=== PATIENT | male | born 1960 | race Hispanic/Latino ===

== ENCOUNTER 2017-12-29 11:06 | Emergency (ER) | payer SELFPAY ==
[~2017-12-29] VITALS: Ht 182.9 cm; Wt 99.8 kg
[2017-12-29] MEDS ORDERED: SODIUM CHLORIDE 0.9% 1000ML 1,000 ML IV ONE (11:45)
--- NOTE | 2017-12-29 12:22 | Diagnostic Imaging Report ---
PROCEDURE:ABDOMEN ACUTE SERIES W/PA CXR COMPARISON:None. INDICATIONS:ABDOMEN DISTENTION FINDINGS: CHEST: The lungs are clear. No pleural effusion or pneumothorax. BOWEL PATTERN: Multiple mildly dilated small bowel loops in the left abdomen with a small air fluid levels. There is gas within the colon and rectum. SOFT TISSUES: No acute abnormality. BONES: Degenerative changes of the facet joints at L4-L5 and L5-S1. CONCLUSION: 1. Multiple mildly dilated small bowel loops may reflect small bowel ileus versus less likely partial obstruction. 2. No acute thoracic abnormality. Hussein Whittington M.D. Dictated by: Hussein Whittington M.D. on 12/29/2017 at 12:22 Electronically approved by: Hussein Whittington M.D. on 12/29/2017 at 12:22
[2017-12-29 13:10] LABS: BASOPHILS # (AUTO) 0.1 (0.0-0.1); BASOPHILS % 0.9 % (0.0-1.0); EOSINOPHILS # (AUTO) 0.3 (0.0-0.4); EOSINOPHILS % 2.9 % (0.0-6.0); HEMATOCRIT 32.1 % (38.2-49.6); HEMOGLOBIN 11.3 g/dL (14.0-18.0); LYMPHOCYTES # (AUTO) 2.2 (1.0-3.2); MEAN CORPUSCULAR HEMOGLOBIN 33.7 pg (28-32); MEAN CORPUSCULAR HGB CONC 35.2 g/dL (31-35); MEAN CORPUSCULAR VOLUME 95.8 fL (81-99); MONOCYTES # (AUTO) 0.5 (0.2-0.8); MONOCYTES % 5.8 % (4.4-11.3); NEUTROPHILS % 65.7 % (38.7-80.0); PLATELET COUNT 330 x10e3/uL (140-360); RED BLOOD COUNT 3.35 x10e6/uL (4.3-5.7); RED CELL DISTRIBUTION WIDTH 12.7 % (11.7-14.4)
[2017-12-29 13:38] LABS: ALANINE AMINOTRANSFERASE 38 IU/L (0-55); ALBUMIN/GLOBULIN RATIO 1.1 (0.8-2.0); ALKALINE PHOSPHATASE 68 IU/L (40-150); ANION GAP 13.7 mmol/L (8-16); BLOOD UREA NITROGEN 6 mg/dL (7-26); BUN/CREATININE RATIO 7 (6-25); CALCIUM 9.7 mg/dL (8.4-10.2); CARBON DIOXIDE 23 mmol/L (22-29); CHLORIDE 105 mmol/L (98-107); CREATININE, SERUM 0.89 mg/dL (0.72-1.25); EST GLOMERULAR FILTRATION RATE > 60 ML/MIN (60-); GLUCOSE 137 mg/dL (74-118); MAGNESIUM 1.3 MG/DL (1.3-2.1); POTASSIUM 3.7 mmol/L (3.5-5.1); SODIUM 138 mmol/L (136-145)
[2017-12-29] MEDS ORDERED: DIATRIZOATE MEGL/DIATRIZOA SOD 30 ML BTL PO ONE (13:39)
[2017-12-29 13:57] LABS: THYROID STIMULATING HORMONE 1.474 uIU/mL (0.350-4.940)
--- NOTE | 2017-12-29 15:12 | Diagnostic Imaging Report ---
PROCEDURE:CT ABDOMEN AND PELVIS WITH CONTRAST COMPARISON:None. INDICATIONS:SMALL BOWEL OBSTRUCTION TECHNIQUE: Routine protocol Volumetric CT abdomen and pelvis after administration of 100 mL Isovue-370 intravenous contrast and 900 mL dilute positive enteric contrast. Multiplanar reformatted images. DLP: 988.51 FINDINGS: Clear lung bases. No pleural effusions. Normal heart size. Liver: Normal Gallbladder: Normal. No bile duct dilation. Pancreas: Normal Spleen: Normal Adrenal glands: Normal Kidneys: Nonspecific bilateral perinephric fat stranding. Otherwise, normal. Urinary bladder: Normal Prostate and seminal vesicles: Normal Bowel: Normal caliber. Redundant sigmoid colon. Normal contrast opacification through the transverse colon. Normal appendix. Peritoneum: Normal Vasculature: Normal caliber. Mild scattered non-flow limiting atherosclerosis. Lymph nodes: Normal Skeleton: Intact. Chronic T11 anterior column fracture. Mild multilevel degenerative disc disease. Soft tissues: Normal CONCLUSION: 1. No evidence of small bowel obstruction. 2. No acute abnormality. Dictated by: Grupo Potter M.D. on 12/29/2017 at 15:13 Electronically approved by: Grupo Potter M.D. on 12/29/2017 at 15:13
[2017-12-29] MEDS ORDERED: SODIUM CHLORIDE 0.9% 50ML 50 ML ONE (15:16)
[2017-12-29] MEDS ORDERED: IOPAMIDOL 370 MG/ML 200 ML INFUS..BTL INJ ONE (15:16)
== END 2017-12-29 16:09 | disposition home or self-care (01) ==
LOC: ER 11:06
DX: R10.33 Periumbilical pain (principal); K59.00 Constipation, unspecified
CPT/HCPCS: 36415; 74022; 74177; 80053; 83735; 84443; 85025; 99284; J7030; Q9967

== ENCOUNTER 2018-01-23 13:17 | Emergency (ER) | payer SELFPAY ==
[~2018-01-23] VITALS: Ht 188 cm; Wt 117.9 kg
--- OUTSIDE RECORDS SUMMARY | 2018-01-23 13:19 | XMS REPORT ---
Author Author [facility] Address Unknown Phone Unavailable Care Team Providers Care Sales Engagement Manager Name Role Phone KEVIN CONDON Unavailable Unavailable Problems This patient has no known problems. Allergies, Adverse Reactions, Alerts This patient has no known allergies or adverse reactions. Medications This patient has no known medications. Results Test Description Test Time Test Comments Text Results Atomic Results Result Comments CT ABDOMEN/PELVIS W [place] [address] Patient Name: EM PRIEST MR #: [id number] : 1960 Age/Sex: 57/M Req # : [id number] Adm Physician: Ordered by: KEVIN CONDON MD Report #: [id number] Location: ER Room/Bed: Procedure: [id number] CT/CT ABDOMEN/PELVIS W Exam Date: 12/29/17 Exam Time: 1445 REPORT STATUS: Signed PROCEDURE: CT ABDOMEN AND PELVIS WITH CONTRAST COMPARISON: None. INDICATIONS: SMALL BOWEL OBSTRUCTION TECHNIQUE: Routine protocol Volumetric CT abdomen and pelvis after administration of 100 mL Isovue-370 intravenous contrast and 900 mL dilute positive enteric contrast. Multiplanar reformatted images. DLP: 988.51 FINDINGS: Clear lung bases. No pleural effusions. Normal heart size. Liver: Normal Gallbladder: Normal. No bile duct dilation. Pancreas: Normal Spleen: Normal Adrenal glands: Normal Kidneys: Nonspecific bilateral perinephric fat stranding. Otherwise, normal. Urinary bladder: Normal Prostate and seminal vesicles: Normal Bowel: Normal caliber. Redundant sigmoid colon. Normal contrast opacification through the transverse colon. Normal appendix. Peritoneum: Normal Vasculature: Normal caliber. Mild scattered non-flow limiting atherosclerosis. Lymph nodes: Normal Skeleton: Intact. Chronic T11 anterior column fracture. Mild multilevel degenerative disc disease. Soft tissues: Normal CONCLUSION: 1. No evidence of small bowel obstruction. 2. No acute abnormality. Dictated by: Reagan Potter M.D. on at 15:13 Electronically approved by: Reagan Potter M.D. on 12/29/2017 at 15:13 Dictated By: REAGAN POTTER MD 12 Transcribed By: ELFEGO on 12/29/17 151 COPY TO: KEVIN CONDON MD ABDOMEN ACUTE SERIES W/PA CXR [place] [address] Patient Name: EM PRIEST MR #: [id number] : 1960 Age/Sex: 57/M Req #: [id number] Adm Physician: Ordered by: KEVIN CONDON MD Report #: [id number] Location: ER Room/Bed: Procedure: [id number] DX/ABDOMEN ACUTE SERIES W/PA CXR Exam Date: Exam Time: REPORT STATUS: Signed PROCEDURE: ABDOMEN ACUTE SERIES W/PA CXR COMPARISON: None. INDICATIONS: ABDOMEN DISTENTION FINDINGS: CHEST: The lungs are clear. No pleural effusion or pneumothorax. BOWEL PATTERN: Multiple mildly dilated small bowel loops in the left abdomen with a small air fluid levels. There is gas within the colon and rectum. SOFT TISSUES: No acute abnormality. BONES: Degenerative changes of the facet joints at L4-L5 and L5-S1. CONCLUSION: 1. Multiple mildly dilated small bowel loops may reflect small bowel ileus versus less likely partial obstruction. 2. No acute thoracic abnormality. Hussein Rueda M.D. Dictated by: Hussein Rueda M.D. on 12/29/2017 at 12:22 Electronically approved by : Hussein Rueda M.D. on 12/29/2017 at 12:22 Dictated By: BLAINE RUEDA MD, MD 1222 COPY TO: KEVIN CONDON MD
--- OUTSIDE RECORDS SUMMARY | 2018-01-23 13:19 | XMS REPORT | Continuity of Care Document ---
Author Author [facility] Organization [facility] Address [address] [place] [address] Phone Unavailable Care Team Providers Care Dredgemaster Name Role Phone NO, PCP PCP Unavailable Advance Directives Directive Response Recorded Date/Time Does the patient have an advance directive? No 12/29/17 11:59am If yes, is advance directive on file with [facility]? No 12/29/17 11:59am If not on file with [facility] will patient provide a copy? No 12/29/17 11:59am Do you have a Directive to Physician? No 12/29/17 11:59am Do you have a Medical Power of Visitor Information Assistant? No 12/29/17 11:59am Do you have an out of hospital Do Not Resuscitate Order? No 12/29/17 11:59am Do you have any special needs we should be aware of? No 12/29/17 11:59am Do you have a support person here with you today? No 12/29/17 11:59am Did patient receive Notice of Privacy Practices? Yes 12/29/17 11:59am Did patient receive patient rights and responsibilities? Yes 12/29/17 11:59am Problems No problem information available. Medications No medication information available. Social History Smoking Status Start Date Stop Date Never Smoker Hospital Discharge Instructions No hospital discharge instruction information available. Plan of Care Discharge Date 12/29/17 4:09pm Disposition HOME, SELF-CARE Condition at Discharge Stable Instructions/Education Provided Constipation - Adult Forms Provided Work/School Excuse Prescriptions See Medication Section Additional Instructions/Education Use Over the Cponter Magnesium Citrate once a week for constipation Functional Status No functional status information available. Allergies, Adverse Reactions, Alerts No known allergies. Immunizations No immunization information available. Vital Signs Acute Vital Signs Vital Response Date/Time Height 6 ft 0 in 12/29/2017 11:32am Weight 220 lb 12/29/2017 11:32am Body Mass Index 29.8 kg/m^2 12/29/2017 11:32am Results Laboratory Results Test Name Result Units Flags Reference Collection Date/Time Result Date/ Time Comments White Blood Count 9.12 x10e3/uL 4.8-10.8 12/29/2017 12:36pm 12/29/2017 1:11pm Red Blood Count 3.35 x10e6/uL L 4.3-5.7 12/29/2017 12:36pm 12/29/2017 1: 11pm Hemoglobin 11.3 g/dL L 14.0-18.0 12/29/2017 12:36pm 12/29/2017 1:11pm Hematocrit 32.1 % L 38.2-49.6 12/29/2017 12:36pm 12/29/2017 1:11pm Mean Corpuscular Volume 95.8 fL 81-99 12/29/2017 12:36pm 12/29/2017 1: 11pm Mean Corpuscular Hemoglobin 33.7 pg H 28-32 12/29/2017 12:36pm 2017 1:11pm Mean Corpuscular Hemoglobin Concent 35.2 g/dL H 31-35 12/29/2017 12:36pm 12/29/2017 1:11pm Red Cell Distribution Width 12.7 % 11.7-14.4 12/29/2017 12:36pm 2017 1:11pm Platelet Count 330 x10e3/uL 140-360 12/29/2017 12:36pm 12/29/2017 1: 11pm Neutrophils (%) (Auto) 65.7 % 38.7-80.0 12/29/2017 12:36pm 12/29/2017 1 :11pm Lymphocytes (%) (Auto) 24.0 % 18.0-39.1 12/29/2017 12:36pm 12/29/2017 1 :11pm Monocytes (%) (Auto) 5.8 % 4.4-11.3 12/29/2017 12:36pm 12/29/2017 1: 11pm Eosinophils (%) (Auto) 2.9 % 0.0-6.0 12/29/2017 12:36pm 12/29/2017 1: 11pm Basophils (%) (Auto) 0.9 % 0.0-1.0 12/29/2017 12:36pm 12/29/2017 1: 11pm IM GRANULOCYTES % 0.7 % 0.0-1.0 12/29/2017 12:36pm 12/29/2017 1:11pm Neutrophils # (Auto) 6.0 2.1-6.9 12/29/2017 12:36pm 12/29/2017 1: 11pm Lymphocytes # (Auto) 2.2 1.0-3.2 12/29/2017 12:36pm 12/29/2017 1: 11pm Monocytes # (Auto) 0.5 0.2-0.8 12/29/2017 12:36pm 12/29/2017 1:11pm Eosinophils # (Auto) 0.3 0.0-0.4 12/29/2017 12:36pm 12/29/2017 1: 11pm Basophils # (Auto) 0.1 0.0-0.1 12/29/2017 12:36pm 12/29/2017 1:11pm Absolute Immature Granulocyte (auto 0.06 x10e3/uL 0-0.1 12/29/2017 12: 36pm 12/29/2017 1:11pm Sodium Level 138 mmol/L 136-145 12/29/2017 12:36pm 12/29/2017 1:41pm Potassium Level 3.7 mmol/L 3.5-5.1 12/29/2017 12:36pm 12/29/2017 1: 41pm Chloride Level 105 mmol/L 98-107 12/29/2017 12:36pm 12/29/2017 1:41pm Carbon Dioxide Level 23 mmol/L 22-29 12/29/2017 12:36pm 12/29/2017 1: 41pm Anion Gap 13.7 mmol/L 8-16 12/29/2017 12:36pm 12/29/2017 1:41pm Blood Urea Nitrogen 6 mg/dL L 7-26 12/29/2017 12:36pm 12/29/2017 1:41pm Creatinine 0.89 mg/dL 0.72-1.25 12/29/2017 12:36pm 12/29/2017 1:41pm BUN/Creatinine Ratio 7 6-25 12/29/2017 12:36pm 12/29/2017 1:41pm Estimat Glomerular Filtration Rate > 60 ML/MIN 60- 12/29/2017 12:36pm 12/29/2017 1:41pm Ranges were taken from the National Kidney Disease Education Program and the National [employer] literature. Reference ranges: 60 or greater: Normal 16-59 (for 3 consecutive months): Chronic kidney disease 15 or less: Kidney failure Glucose Level 137 mg/dL H 74-118 12/29/2017 12:36pm 12/29/2017 1:41pm Calcium Level 9.7 mg/dL 8.4-10.2 12/29/2017 12:36pm 12/29/2017 1:41pm Magnesium Level 1.3 MG/DL 1.3-2.1 12/29/2017 12:36pm 12/29/2017 1:41pm Total Bilirubin 1.0 mg/dL 0.2-1.2 12/29/2017 12:36pm 12/29/2017 1:41pm Aspartate Amino Transf (AST/SGOT) 46 IU/L H 5-34 12/29/2017 12:36pm 10/2017 1:41pm Alanine Aminotransferase (ALT/SGPT) 38 IU/L 0-55 12/29/2017 12:36pm 10/2017 1:41pm Total Protein 7.7 g/dL 6.5-8.1 12/29/2017 12:36pm 12/29/2017 1:41pm Albumin 4.0 g/dL 3.5-5.0 12/29/2017 12:36pm 12/29/2017 1:41pm Globulin 3.7 g/dL H 2.3-3.5 12/29/2017 12:36pm 12/29/2017 1:41pm Albumin/Globulin Ratio 1.1 0.8-2.0 12/29/2017 12:36pm 12/29/2017 1: 41pm Alkaline Phosphatase 68 IU/L 40-150 12/29/2017 12:36pm 12/29/2017 1: 41pm Thyroid Stimulating Hormone (TSH) 1.474 uIU/mL 0.350-4.940 12/29/2017 12 :36pm 12/29/2017 1:59pm Procedures Procedure Status Date Provider(s) Computed tomography of abdomen and pelvis with contrast Active 12/29/17 KEVIN CONDON MD Encounters Encounter Location Arrival/Admit Date Discharge/Depart Date Attending Provider Departed Emergency Room [facility] 12/29/17 11:06am 12/29 4:09pm KEVIN CONDON MD
[2018-01-23 14:06] LABS: BASOPHILS # (AUTO) 0.1 (0.0-0.1); BASOPHILS % 0.6 % (0.0-1.0); EOSINOPHILS # (AUTO) 0.1 (0.0-0.4); EOSINOPHILS % 0.7 % (0.0-6.0); HEMOGLOBIN 12.7 g/dL (14.0-18.0); LYMPHOCYTES # (AUTO) 2.2 (1.0-3.2); LYMPHOCYTES % 25.5 % (18.0-39.1); MEAN CORPUSCULAR HEMOGLOBIN 32.8 pg (28-32); MEAN CORPUSCULAR HGB CONC 35.3 g/dL (31-35); MONOCYTES # (AUTO) 0.7 (0.2-0.8); MONOCYTES % 7.8 % (4.4-11.3); NEUTROPHILS # (AUTO) 5.5 (2.1-6.9); NEUTROPHILS % 64.9 % (38.7-80.0); PLATELET COUNT 189 x10e3/uL (140-360); RED BLOOD COUNT 3.87 x10e6/uL (4.3-5.7); RED CELL DISTRIBUTION WIDTH 13.5 % (11.7-14.4)
[2018-01-23] MEDS ORDERED: CLONIDINE HCL 0.1 MG TAB PO ONE (14:15)
[2018-01-23 14:17] LABS: INR 1.17
[2018-01-23 14:18] LABS: PARTIAL THROMBOPLASTIN TIME 30.7 seconds (23.8-35.5)
[2018-01-23 14:23] LABS: ANION GAP 22.7 mmol/L (8-16); BLOOD UREA NITROGEN 8 mg/dL (7-26); BUN/CREATININE RATIO 10 (6-25); CALCIUM 10.1 mg/dL (8.4-10.2); CARBON DIOXIDE 20 mmol/L (22-29); CHLORIDE 97 mmol/L (98-107); CREATINE KINASE 185 IU/L (30-200); CREATININE, SERUM 0.83 mg/dL (0.72-1.25); EST GLOMERULAR FILTRATION RATE > 60 ML/MIN (60-); GLUCOSE 276 mg/dL (74-118); POTASSIUM 3.7 mmol/L (3.5-5.1); SODIUM 136 mmol/L (136-145)
--- NOTE | 2018-01-23 14:37 | Diagnostic Imaging Report ---
PROCEDURE: Frontal and lateral views of the chest. COMPARISON: Acute abdominal series from 12/29/2017 INDICATIONS: SHORTNESS OF BREATH, HIGH BLOOD PRESSURE FINDINGS: Lines/tubes: None. Lungs: The lungs are well inflated and clear. There is no evidence of pneumonia or pulmonary edema. Pleura: There is no pleural effusion or pneumothorax. Heart and mediastinum: The heart and the mediastinum are normal. Bones: No acute bony abnormality. IMPRESSION: 1. No acute cardiopulmonary disease. Dictated by: Chet Alexis M.D. on 01/23/2018 at 14:38 Electronically approved by: Chet Alexis M.D. on 01/23/2018 at 14:38
--- NOTE | 2018-01-23 14:43 | Diagnostic Imaging Report ---
EXAMINATION: Head CT HISTORY: Hypertension, trauma COMPARISON: None. TECHNIQUE: Multidetector axial images were obtained without contrast from the foramen magnum to the vertex . The images were reconstructed using brain and bone algorithms. Thin section brain images were reformatted into coronal and sagittal planes. Intravenous contrast: None. Motion/streaking artifact limits the evaluation of the skull base and posterior cranial fossa. FINDINGS: Parenchyma: 1. No abnormal densities. 2. No mass or hemorrhage. No CT evidence of acute territorial vascular insult. Extra-axial spaces:No abnormal density. No extra-axial fluid collections Brain volume: Mild generalized brain volume loss. Ventricles: No hydrocephalus or displacement. Arteries: No density suggestive of thrombus. Dural sinuses: No abnormal density. Extra-axial spaces: No abnormal density. Foramen magnum: No mass, Chiari malformation, or basilar invagination. Sella: No obvious mass. Paranasal/mastoid sinuses: Imaged portions unremarkable. Skull/Scalp: No lytic or blastic lesions. No fractures. IMPRESSION: No intracranial abnormalities, particularly no hemorrhage. Signed by: Dr. Daniela Clay M.D. on 01/23/2018 2:40 PM
[2018-01-23] MEDS ORDERED: ONDANSETRON HCL 4 MG ORAL DISINTEGRATING TAB PO PRN ×2 (14:45)
[2018-01-23 17:04] VITALS: BP 151/88
== END 2018-01-23 17:25 | disposition home or self-care (01) ==
LOC: ER 13:17
DX: G44.209 Tension-type headache, unspecified, not intractable (principal); R11.2 Nausea with vomiting, unspecified; I10 Essential (primary) hypertension; E11.9 Type 2 diabetes mellitus without complications
CPT/HCPCS: 36415; 70450; 71046; 80048; 82550; 82553; 83880; 84484; 85025; 85610; 85730; 93005; 99284

== ENCOUNTER 2021-03-20 14:22 | Emergency (ER) | payer SELFPAY ==
[~2021-03-20] VITALS: Ht 188 cm; Wt 117.9 kg
[2021-03-20 14:52] LABS: BASOPHILS # (AUTO) 0.1 (0.0-0.1); BASOPHILS % 0.5 % (0.0-1.0); EOSINOPHILS # (AUTO) 0.8 (0.0-0.4); HEMATOCRIT 35.5 % (38.2-49.6); HEMOGLOBIN 12.1 g/dL (14.0-18.0); LYMPHOCYTES # (AUTO) 1.9 (1.0-3.2); LYMPHOCYTES % 20.8 % (18.0-39.1); MEAN CORPUSCULAR HEMOGLOBIN 33.4 pg (28-32); MEAN CORPUSCULAR HGB CONC 34.1 g/dL (31-35); MEAN CORPUSCULAR VOLUME 98.1 fL (81-99); MONOCYTES # (AUTO) 1.1 (0.2-0.8); MONOCYTES % 11.7 % (4.4-11.3); NEUTROPHILS # (AUTO) 5.3 (2.1-6.9); NEUTROPHILS % 57.2 % (38.7-80.0); PLATELET COUNT 190 x10e3/uL (140-360); RED BLOOD COUNT 3.62 x10e6/uL (4.3-5.7); RED CELL DISTRIBUTION WIDTH 14.1 % (11.7-14.4)
[2021-03-20 15:08] LABS: ALBUMIN 4.1 g/dL (3.5-5.0); ANION GAP 18.1 mmol/L (8-16); CREATININE, SERUM 2.19 mg/dL (0.72-1.25); POTASSIUM 4.1 mmol/L (3.5-5.1)
[2021-03-20] MEDS ORDERED: PROCTOCORT28.4 GM TOP (15:14)
[2021-03-20] MEDS ORDERED: KETOCONAZOLE15 GM TOP (15:14)
[2021-03-20] MEDS: SODIUM CHLORIDE 0.9% 1000ML 1,000 ML IV ONE (15:14)
[2021-03-20] MEDS ORDERED: SODIUM CHLORIDE 0.9% 1000ML 1,000 ML ONE (15:21)
[2021-03-20] MEDS: DIPHENHYDRAMINE HCL 25 MG CAP PO ONE (15:22)
[2021-03-20] MEDS ORDERED: DIPHENHYDRAMINE HCL 25 MG CAP ONE (15:29)
[2021-03-20 23:24] VITALS: BP 145/84
== END 2021-03-20 21:47 | disposition home or self-care (01) ==
LOC: ER 14:58
DX: R21 Rash and other nonspecific skin eruption (principal); L40.0 Psoriasis vulgaris; I10 Essential (primary) hypertension; E11.65 Type 2 diabetes mellitus with hyperglycemia; E78.5 Hyperlipidemia, unspecified
CPT/HCPCS: 36415; 73590 ×2; 73700 ×2; 80053; 83605; 85025; 87040; 93005; 99284; J7030

== ENCOUNTER 2022-05-08 11:16 | Emergency (ER) | payer OTHER ==
[~2022-05-08] VITALS: Ht 188 cm; Wt 117.9 kg
[~2022-05-08 11:16] MED LIST: KETOCONAZOLE15 GM TOP; PROCTOCORT28.4 GM TOP
[2022-05-08] MEDS ORDERED: KETOROLAC TROMETHAMINE 30 MG/ML VIAL IV STA (11:53)
[2022-05-08] MEDS ORDERED: SODIUM CHLORIDE 0.9% 1000ML 1,000 ML IV ONE (12:00)
[2022-05-08 12:17] LABS: BASOPHILS # (AUTO) 0.1 (0.0-0.1); BASOPHILS % 0.7 % (0.0-1.0); EOSINOPHILS # (AUTO) 0.2 (0.0-0.4); EOSINOPHILS % 1.7 % (0.0-6.0); HEMATOCRIT 33.9 % (38.2-49.6); HEMOGLOBIN 11.4 g/dL (14.0-18.0); LYMPHOCYTES # (AUTO) 2.1 (1.0-3.2); LYMPHOCYTES % 21.4 % (18.0-39.1); MEAN CORPUSCULAR HEMOGLOBIN 33.6 pg (28-32); MEAN CORPUSCULAR HGB CONC 33.6 g/dL (31-35); MONOCYTES % 10.1 % (4.4-11.3); NEUTROPHILS # (AUTO) 6.5 (2.1-6.9); NEUTROPHILS % 65.4 % (38.7-80.0); PLATELET COUNT 303 x10e3/uL (140-360); RED BLOOD COUNT 3.39 x10e6/uL (4.3-5.7); RED CELL DISTRIBUTION WIDTH 13.2 % (11.7-14.4)
[2022-05-08 12:37] LABS: ALBUMIN 3.9 g/dL (3.5-5.0); ALBUMIN/GLOBULIN RATIO 0.8 (0.8-2.0); ANION GAP 16.4 mmol/L (8-16); CREATININE, SERUM 1.85 mg/dL (0.72-1.25); POTASSIUM 3.4 mmol/L (3.5-5.1)
[2022-05-08 12:43] LABS: CREATINE KINASE MB 1.4 ng/mL (0-5.0)
[2022-05-08] MEDS ORDERED: FENTANYL CITRATE/PF 100MCG/2 ML INJ IV ONE (16:30)
[2022-05-08 17:08] VITALS: BP 117/75
== END 2022-05-08 17:11 | disposition other institution (70) ==
LOC: ER 11:20
DX: S12.200A Unspecified displaced fracture of third cervical vertebra, initial encounter for closed fracture (principal); S43.492A Other sprain of left shoulder joint, initial encounter; W10.8XXA Fall (on) (from) other stairs and steps, initial encounter; Y93.01 Activity, walking, marching and hiking; Y92.89 Other specified places as the place of occurrence of the external cause; N17.9 Acute kidney failure, unspecified; E86.0 Dehydration; E11.65 Type 2 diabetes mellitus with hyperglycemia; I10 Essential (primary) hypertension; E78.5 Hyperlipidemia, unspecified; Z20.822 Contact with and (suspected) exposure to COVID-19
CPT/HCPCS: 36415; 72125; 72128; 73000; 73030; 80053; 82550; 82553; 84484; 85025; 93005; 99284; J1885; J3010; J7030; U0002

== ENCOUNTER 2022-05-21 22:11 | Emergency (ER) | payer SELFPAY ==
[~2022-05-21] VITALS: Ht 188 cm; Wt 117.9 kg
[2022-05-21] MEDS ORDERED: PREDNISONE 20 MG TAB PO STA (22:18)
[2022-05-21] MEDS ORDERED: PREDNISONE 20 MG TAB ONE (22:37)
[2022-05-21] MEDS ORDERED: AZITHROMYCIN250 MG PO (23:04)
[2022-05-21] MEDS ORDERED: VENTOLIN HFA18 GM INH (23:04)
[2022-05-21] MEDS ORDERED: PREDNISONE20 MG PO (23:04)
[2022-05-21 23:35] VITALS: BP 98/61
== END 2022-05-21 23:30 | disposition home or self-care (01) ==
LOC: ER 22:16
DX: R50.9 Fever, unspecified (principal); J40 Bronchitis, not specified as acute or chronic; Z98.890 Other specified postprocedural states; R05.9 Cough, unspecified; I10 Essential (primary) hypertension; E11.9 Type 2 diabetes mellitus without complications; E78.5 Hyperlipidemia, unspecified; M43.22 Fusion of spine, cervical region; Z20.822 Contact with and (suspected) exposure to COVID-19
CPT/HCPCS: 0223U; 36415; 71046; 99283; J7512

== ENCOUNTER 2025-03-07 15:03 | Emergency (ER) | payer SELFPAY ==
[~2025-03-07] VITALS: Ht 188 cm; Wt 108.9 kg
[~2025-03-07 15:03] MED LIST changes: +AZITHROMYCIN250 MG PO; +PREDNISONE20 MG PO; +VENTOLIN HFA18 GM INH
[2025-03-07 15:11] VITALS: TEMP 99.5
[2025-03-07 15:38] VITALS: PULSE 97; RESP 24; O2SAT 100
[2025-03-07] MEDS: ALBUTEROL/IPRATROPIUM 3 ML NEB NEB ONE (15:38)
[2025-03-07 16:03] VITALS: PULSE 114; RESP 18; O2SAT 98
[2025-03-07] MEDS ORDERED: AZITHROMYCIN1 GM PO (16:03)
[2025-03-07] MEDS ORDERED: PREDNISONE50 MG PO (16:03)
[2025-03-07] MEDS ORDERED: PROAIR DIGIHAL90 MCG INH (16:03)
[2025-03-07] MEDS ORDERED: DOXYCYCLINE HY100 MG PO (16:11)
== END 2025-03-07 16:41 | disposition home or self-care (01) ==
LOC: ER 15:20
DX: R05.9 Cough, unspecified (principal); J06.9 Acute upper respiratory infection, unspecified; I10 Essential (primary) hypertension; E11.9 Type 2 diabetes mellitus without complications; E78.5 Hyperlipidemia, unspecified; R53.83 Other fatigue
CPT/HCPCS: 71045; 94640; 94760; 94799; 99284